=== PATIENT | female | born 1955 | race African-American/Black ===

== ENCOUNTER 2018-05-02 12:40 | Emergency (ER) | payer MEDICAID, OTHER ==
[~2018-05-02] VITALS: Ht 165.1 cm; Wt 130.0 kg
[2018-05-02] MEDS ORDERED: TETANUS, DIPHTHERIA, PERTUSSIS VAC/PF 0.5ML (>7YR OLD) IM ONE (17:15)
[2018-05-02] MEDS ORDERED: BACITRACIN ZINC OINT UDPKT TOP ONE (17:15)
[2018-05-02] MEDS ORDERED: KETOROLAC 30MG/ML VIAL IM ONE (17:15)
[2018-05-02] MEDS ORDERED: KETOROLAC 30MG/ML VIAL ONE (17:41)
[2018-05-02 18:20] VITALS: BP 150/89
== END 2018-05-02 19:04 | disposition home or self-care (01) ==
LOC: ER 12:40
DX: S81.002A Unspecified open wound, left knee, initial encounter (principal); G89.29 Other chronic pain; F41.9 Anxiety disorder, unspecified; E78.00 Pure hypercholesterolemia, unspecified; W01.0XXA Fall on same level from slipping, tripping and stumbling without subsequent striking against object, initial encounter; Y93.89 Activity, other specified; Y92.89 Other specified places as the place of occurrence of the external cause; Y99.8 Other external cause status; Z28.9 Immunization not carried out for unspecified reason
CPT/HCPCS: 90471; 90715; 96372; 99283; J1885

== ENCOUNTER → 2020-07-08 | Outpatient (CLI) | payer MEDICARE, OTHER | END | disposition home or self-care (01) | LOC: LAB 09:15 | PROVIDERS: ATTEND Neurological Surgery | DX: Z01.812 Encounter for preprocedural laboratory examination (principal); Z20.822 Contact with and (suspected) exposure to COVID-19 | CPT/HCPCS: 87426 ==